=== PATIENT | male | born 1990 | race Caucasian/White ===

== ENCOUNTER 2025-08-28 22:12 | Emergency (ER) | payer BC, SELFPAY ==
[2025-08-28 22:14] VITALS: BP 138/87
[2025-08-28 22:22] VITALS: BMI 36.7
--- NOTE | 2025-08-28 23:25 | ED.GENMED ---
History of Present Illness
General
Chief Complaint: Headache
Source: patient
Exam Limitations: none
Time Seen by Provider: 08/28/25 23:04
History of Present Illness
History of Present Illness:
35yoM with a history of obesity on [place] presenting for evaluation of a headache. Patient reports recurrent headaches over the past week. Headaches are always located in the left temporal region and seem to be worse at nighttime. Pain is
described as a pressure in his left pentecostalism and behind his left eye. Pain radiates into the jaw at times. Pain typically last 1 to 2 hours before resolving. His headache this evening was the worst and woke him up from sleep. He also had an
episode of vomiting today which is the first time this has happened. Headache has now improved and is currently rated as a 3 out of 10 in severity. He denies any visual changes, dizziness, paresthesias, weakness, fevers, head trauma. He had
similar headaches several years ago and he was seen by his PCP who told him to stop eating dark chocolate which seemed to help.
Phy Exam
General Physical Exam
General Presentation: well appearing and no apparent distress
General Skin: warm and dry
General Habitus: normal
General Mental: alert
ENT Exam
ENT Exam: normocephalic and other (No meningismus)
Eye Exam
Eye Exam: PERRL and EOMI
Pulmonary Exam
Pulmonary Exam: no respiratory distress
Neurological Exam
Neurological Exam: alert, no motor deficits and speech normal
[place] Coma Scale
Eye Opening: Spontaneous
Verbal Response: Oriented
Motor Response: Obeys Commands
GCS Total Score: 15
Skin Exam
Skin Exam: normal color and warm/dry
Psychiatric Exam
Psychiatric Exam: normal mood/affect
Course
Orders/Labs/Results
Orders:
Orders
08/28/25 23:19
CT Head W/o Iv Contrast Urgent
Comment:
Reason For Exam: new onset headache
0.9% Sodium Chloride 1000 ml [Nss] 1,000 ml IV BOLUS
Ketorolac [Toradol] 15 mg IV NOW STA
Sumatriptan Succinate [Imitrex] 6 mg SC NOW STA
Vital Signs
Initial and Last Documented VS:
Initial Vital Signs
Temp Pulse Resp BP Pulse Ox
97.4 F 63 16 138/87 99
08/28/25 22:14 08/28/25 22:14 08/28/25 22:14 08/28/25 22:14 08/28/25 22:14
Last Documented Vital Signs
Temp Pulse Resp BP Pulse Ox
97.4 F 62 16 124/81 97
08/28/25 22:14 08/29/25 01:00 08/29/25 01:00 08/29/25 01:00 08/29/25 01:00
MDM/Problems Addressed
Differential Diagnosis Includes:
35yoM here with recurrent headaches x 1 week. Always occurs in L temporal area. Lasts 1-2 hours before resolving. Episode this evening woke him up from sleep and was associated with n/v. VSS. He is well-appearing in no distress. No focal neuro
deficits noted and there is no nuchal rigidity. Differential diagnosis includes but is not limited to: Cluster headache, migraine, trigeminal neuralgia, brain mass, doubt temporal arteritis given age
Initial ED plan: Check head CT. Will give IV Toradol, SQ sumatriptan, fluid bolus, and place patient on NRB for suspected cluster headache.
*Pulse Oximetry
SaO2: 98
Oxygen Mode of Delivery: Room air
Patient hypoxic: no
*Critical Care Note
Total Time (30-74mins, 75-104mins- exclusive of procedures): Not Applicable
Update Note
Update Note:
CT head negative for acute findings. On reassessment, patient is feeling significantly improved and headache has completely resolved. Suspect cluster headache. He was instructed to follow-up with neurology and he does have an appointment with his
PCP scheduled in 2 weeks. ED return precautions reviewed. Patient and in agreement with plan and he was discharged in stable condition.
ED Attending Note
-
Portions of this chart may have been created with voice recognition software.� Occasional wrong word or��sound alike� substitutions may have occurred due to the inherent limitations of voice recognition software.
Discharge Plan
Departure
Patient Disposition: Home (Routine Discharge)
Date of Disposition: 08/29/25
Time of Disposition: 00:49
Patient with high blood pressure during this ER visit?: No
Discharge Problem:
Acute nonintractable headache
Instructions: Headache, Adult (DC)
Referrals:
Greg Carvajal MD [Active, Neurology]
Isma Rose MD [Family Provider, Family Practice]
Activity Restrictions/Additional Instructions:
Please follow-up with your family doctor and neurology. Return to the ER with any new or worsening symptoms.
Interventions
Interventions:
*Risk Screen - Suicide Last Done: 08/28/25 22:14
*General Assessment Last Done: 08/28/25 22:22
*Neglect/Abuse Screening Last Done: 08/28/25 22:14
*ED- Fall Risk Assessment Last Done: 08/28/25 22:22
*ED COVID-19 Vaccine History Last Done: 08/28/25 22:22
*ED Influenza Vaccine History Last Done: 08/28/25 22:22
*Nursing Disposition Last Done: 08/29/25 01:05
ED- Neurological Assessment Last Done: 08/28/25 22:22
Discharge Date and Time
Print Language: [id number]
[2025-08-28] MEDS: TORADOL 15 MG IV (23:48)
[2025-08-28 23:51] VITALS: BP 125/80
[2025-08-28] MEDS: NSS 1000 IV (23:51)
[2025-08-28] MEDS: IMITREX 6 MG SC (23:52)
[2025-08-29] VITALS: BP 133/91
[2025-08-29 01:00] VITALS: BP 124/81
== END 2025-08-29 01:27 | disposition home or self-care (01) ==
LOC: EMR 22:12
PROVIDERS: EMERGENCY PHYSICIAN Emergency Medicine; FAMILY PHYSICIAN Family Medicine
DX: R51.9 Headache, unspecified (principal); E66.9 Obesity, unspecified; Z79.899 Other long term (current) drug therapy
CPT/HCPCS: 96374; 96372; 96361; 99284; 70450